=== PATIENT | female | born 1995 | race Caucasian/White ===

== ENCOUNTER 2018-11-26 15:33 | Emergency (ER) | payer BC ==
[2018-11-26 15:46] VITALS: BP 114/70
[2018-11-26] MEDS ORDERED: Rabies Immune Globulin/PF 1ML* 1 ML/300 UNITS VIAL IM ONE (16:06)
[2018-11-26] MEDS ORDERED: Rabies VIRUS VACCINE (RabAvert)* 2.5 UNITS VIAL IM ONE (16:06)
--- NOTE | 2018-11-26 16:12 | UC ---
Bite Injury/Animal HPI - HPI Summary HPI Summary: Ms. Freitas woke up several nights ago with a bat flying around in the room. No known contact - History of Current Complaint Chief Complaint: UCBiteInjury Stated Complaint: RABIES POST EXPOSURE Time Seen by Provider: 11/26/18 15:42 Hx Obtained From: Patient Hx Last Menstrual Period: 2 weeks ago Severity Currently: None Pain Intensity: 0 Onset/Duration: Sudden Onset - Allergies/Home Medications Allergies/Adverse Reactions: Allergies Allergy/AdvReac Type Severity Reaction Status Date / Time Cephalosporins Allergy Hives Verified 11/26/18 15:45 Home Medications: Home Medications Norgestrel-Ethinyl Estradiol [Cryselle-28] 1 tab PO DAILY 11/26/18 [History Confirmed 11/26/18] Ondansetron ODT TAB* [Zofran 4 MG Odt TAB*] 4 mg PO Q6H PRN 11/26/18 [History Confirmed 11/26/18] Spironolactone TAB* [Aldactone TAB*] 50 mg PO DAILY 11/26/18 [History Confirmed 11/26/18] Vortioxetine Hydrobromide [Brintellix] 20 mg PO DAILY 11/26/18 [History Confirmed 11/26/18] PMH/Surg Hx/FS Hx/Imm Hx Previously Healthy: Yes - Surgical History Surgical History: Yes Surgery Procedure, Year, and Place: tonsils/addenoids. wisdom teeth - Social History Alcohol Use: Weekly Substance Use Type: None Smoking Status (MU): Never Smoked Tobacco Review of Systems All Other Systems Reviewed And Are Negative: Yes Physical Exam Triage Information Reviewed: Yes Appearance: Well-Appearing Vital Signs: Initial Vital Signs Temp 97.9 F 11/26/18 15:40 Pulse 74 11/26/18 15:40 Resp 16 11/26/18 15:40 BP 114/70 11/26/18 15:40 Pulse Ox 99 11/26/18 15:40 Vital Signs Reviewed: Yes Neurological Exam: Normal Psychological Exam: Normal Bite Injury Course/Dx - Course Course Of Treatment: She was given initial HRIG and vaccine here. - Differential Dx/Diagnosis Provider Diagnosis: Need for post exposure prophylaxis for rabies Discharge - Sign-Out/Discharge Documenting (check all that apply): Patient Departure All imaging exams completed and their final reports reviewed: No Studies - Discharge Plan Condition: Stable Disposition: HOME Patient Education Materials: Rabies Vaccine (ED) Referrals: No Primary Care Phys,NOPCP [Primary Care Provider] - - Billing Disposition and Condition Condition: STABLE Disposition: Home
== END 2018-11-26 16:49 | disposition home or self-care (01) ==
LOC: UCEAST 15:33
DX: Z29.14 Encounter for prophylactic rabies immune globulin (principal)
CPT/HCPCS: 90375; 90471; 90675; 96372; 99201; G0463